=== PATIENT | male | born 1960 | race Caucasian/White ===

== ENCOUNTER 2016-09-27 15:40 | Observation (INO) | payer OTHER ==
--- NOTE | ~2016-09-27 | OP ---
Record Of Operation [facility] [address] [place]. [address] NAME: LORELEI SOLANO JR : 64 STATUS : ADM IN PAT#: [id number] AGE: 55 ADM/REG DATE : 09/27/16 MR#: [id number] REPORT SERV DATE: 09/28/16 DICTATED BY: SHAKEEL GERMAIN DATE: 09/27/16 REPORT STATUS : Draft TRANSCRIBED BY: MODL DATE: 09/27/16 DATE OF PROCEDURE: 09/27/2016 TIME: 2130 hours. PREOPERATIVE DIAGNOSIS: Acute appendicitis. POSTOPERATIVE DIAGNOSIS: Acute appendicitis. PROCEDURE: Laparoscopic appendectomy. SURGEON: Shakeel Germain M.D. RESIDENT: Wally Mckeon M.D. ANESTHESIA: General and local. IV FLUIDS: 800. ESTIMATED BLOOD LOSS: 10 mL. SPECIMEN: Appendix. COMPLICATIONS: None. INDICATION: This is a 55-year-old male who had had several hours of extreme periumbilical pain, came to the emergency department, received workup with an elevated white count as well as imaging consistent with acute appendicitis. He has considered the risks, benefits, and alternatives of appendectomy and would like to go forward. DESCRIPTION OF PROCEDURE: The patient was taken to the operative room, placed on the operating table, was prepped and draped in normal sterile fashion after undergoing endotracheal anesthesia after which formal time-out was performed. Skin hooks were grasped from the umbilicus. An incision was made in the umbilicus down to the level of the preperitoneal fat after which trocar was able to be placed in the abdomen. A 10-mm trocar was placed in the abdomen. It was inflated. This was followed by a scope with no trauma noted. A 5-mm port was placed both in the patient's right upper quadrant as well as lower midline. After this, small bowel and a very large dilated and edematous appendix was found. This was found to be especially edematous at the base. Peritoneal attachments of the appendix were taken down. The appendix was mobilized, after which it could be seen near the base. Chantel forceps was used to create a window between the mesentery of the base of the appendix after which a stapler was placed across the base of the appendix and fired. Once this was done, the mesentery was taken with another stapling device. This required two joan to come across the entirety of the mesentery after this the appendix was free. Endopouch was placed in the abdomen. The appendix was placed in the Endopouch. Prior removing the appendix, the site was suctioned Record Of Operation [address] [place]. [address] NAME: LORELEI SOLANO JR : 64 STATUS : ADM IN PAT#: [id number] AGE: 55 ADM/REG DATE : 09/27/16 MR#: [id number] REPORT SERV DATE: 09/28/16 DICTATED BY: SHAKEEL GERMAIN DATE: 09/27/16 REPORT STATUS : Draft TRANSCRIBED BY: DEJUAN DATE: 09/27/16 and irrigated. Staple lines were inspected with no issues. The appendix was removed. Abdomen was desufflated. The umbilical fascia was approximated with 0 Vicryl suture in [id number] fashion, skin incisions sutured with 5-0 Monocryl, dressed with Steri-Strips and Band-Aid. The patient was subsequently extubated and is being taken to PACU in stable condition. DICTATED BY: MD THERON Hoover/DEJUAN Shakeel Germain M.D. / [id number] CC: Shakeel Germain M.D.
[~2016-09-27 15:40] MED LIST: *DENIES
[2016-09-27 17:31] LABS: BASOPHILS 0.1 %; BASOPHILS ABSOLUTE 0.02 10/3/uL (0.0-0.16); EOSINOPHILS 0.1 %; EOSINOPHILS ABSOLUTE 0.02 10/3/uL (0.0-0.53); HEMATOCRIT 43.8 % (40.0-51.0); HEMOGLOBIN 15.6 g/dL (13.6-17.8); IMMATURE GRANULOCYTES 0.3 %; IMMATURE GRANULOCYTES ABSOLUTE 0.04 10/3/uL (0.0-0.11); LYMPHOCYTES 5.7 %; MEAN CORPUSCULAR HEMOGLOB 33.8 pg (26.0-34.0); MEAN CORPUSCULAR VOLUME 94.8 fL (80-100); MEAN PLATELET VOLUME 9.6 fL (9.2-13.0); MONOCYTES 5.8 %; MONOCYTES ABSOLUTE 0.82 10/3/uL (0.21-1.20); NEUTROPHILS ABSOLUTE 12.38 10/3/uL (2.02-8.40); PLATELET COUNT 305 10/3/uL (150-400); RBC DISTRIBUTION WIDTH 12.3 % (12.0-16.0); RED CELL COUNT 4.62 10/6/uL (4.7-6.1)
[2016-09-27 17:36] LABS: ER CBC TAT 0 Hrs 14 Mins; MANUAL DIFF NO %; MEAN CORPUS HGB CONC 35.6 g/dL (32.0-36.0); WHITE BLOOD CELLS 14.1 10/3/uL (4.5-10.5)
[2016-09-27 17:52] LABS: A/G RATIO 1.2 (0.7-1.9); ALBUMIN 4.2 G/DL (3.5-5.0); CALCIUM, SERUM 9.1 MG/DL (8.5-10.4); CHLORIDE, SERUM 101 MMOL/L (96-112); CO2 (CARBON DIOXIDE) 25 MMOL/L (24-34); CREATININE 0.84 MG/DL (0.70-1.30); GFR AFRICAN AMERICAN 116 ML/MIN (>=60); GFR NON AFRICAN AMERICAN 100 ML/MIN (>=60); GLOBULIN 3.5 G/DL (2.5-4.1); GLUCOSE, SERUM 106 MG/DL (60-99); SGOT(AST) 25 U/L (5-40); SGPT(ALT) 54 U/L (5-65); SODIUM, SERUM 140 MMOL/L (135-148); TOTAL BILIRUBIN 0.6 MG/DL (0-1.2); TOTAL PROTEIN 7.7 G/DL (6.0-8.5)
[2016-09-27 17:57] LABS: ALKALINE PHOSPHATASE 99 U/L (45-117); BUN (BLOOD UREA NITROGEN) 11 MG/DL (6-23); DIRECT BILIRUBIN < 0.1 MG/DL (0.0-0.4); INDIRECT BILIRUBIN(NOT ORDER) 0.5 MG/DL (0.1-0.9); POTASSIUM, SERUM 3.3 MMOL/L (3.5-5.3)
[2016-09-27 18:43] LABS: WBC (NOT ORDERED) (RFLEX) 0 (0-5)
[2016-09-27 18:58] LABS: ASCORBIC ACID (UR NOT ORDER) NEG (NEG); BILIRUBIN, URINE NEGATIVE (NEG); ER URINALYSIS TAT 0 Hrs 20 Mins; KETONE, URINE 20 MG/DL (NEG); LEUKOCYTE ESTERASE(NOT OR NEG (NEG); NITRITE (URINE) NEG (NEG)
[2016-09-27] MEDS ORDERED: VOLTXR100 PO (18:59)
[2016-09-27] MEDS ORDERED: TUMS E-X750 M2 PO (19:00)
[2016-09-27] MEDS ORDERED: ALEVE220 MG PO (19:00)
[2016-09-27] MEDS ORDERED: ADVIL PO (19:00)
[2016-09-28] MEDS ORDERED: PCET PO (11:34)
== END 2016-09-28 13:10 | disposition home or self-care (01) ==
LOC: ER 15:40 → 5SO 19:10
PROVIDERS: Emergency Medicine; Specialist
PROC: 0DTJ4ZZ Resection of Appendix, Percutaneous Endoscopic Approach (ICD-10-PCS; principal; 2016-09-27 20:34)
DX: K35.80 Unspecified acute appendicitis (principal); F17.210 Nicotine dependence, cigarettes, uncomplicated
CPT/HCPCS: 71010; 74176; 80053; 81001; 82248; 83690; 85025; 88304; 96372; 96374; 96375; 96376; 99285; A9270-GY; C9113; G0378; J0330; J1170; J1885; J2250; J2270; J2405; J2543; J2710; J3010